=== PATIENT | male | born 1960 | race Native Hawaiian/Other Pacific Islander ===

== ENCOUNTER 2018-11-16 14:20 | Outpatient (CLI) | payer OTHER | END 2018-11-16 19:41 | disposition home or self-care (01) | LOC: LABW 14:20 | DX: R31.21 Asymptomatic microscopic hematuria (principal); R35.1 Nocturia | CPT/HCPCS: 36415; 81000; 84153; 87088 ==

== ENCOUNTER 2018-12-21 13:21 | Outpatient (CLI) | payer OTHER | END 2018-12-21 21:41 | disposition home or self-care (01) | LOC: LABW 13:21 | DX: R68.82 Decreased libido (principal) | CPT/HCPCS: 84402; 84403 ==